=== PATIENT | male | born 1970 | race Caucasian/White ===

== ENCOUNTER → 2017-05-28 | Outpatient (CLI) | payer BC ==
[2017-05-28 14:18] LABS: FREE T4 1.16 NG/DL (0.76-1.46)
[2017-05-30 00:06] LABS: Lyme Disease IgG/IgM Antibodie <0.91 ISR (0.00-0.90); Lyme Disease IgM Ab Quantitati <0.80 index (0.00-0.79)
[2017-06-04 00:06] LABS: STREP PNEUMO TYPE 12F <0.3 ug/mL (>1.3); STREP PNEUMO TYPE 18C 1.5 ug/mL (>1.3); STREP PNEUMO TYPE 19A 7.5 ug/mL (>1.3); STREP PNEUMO TYPE 19F 13.1 ug/mL (>1.3); STREP PNEUMO TYPE 23F <0.3 ug/mL (>1.3); STREP PNEUMO TYPE 7F 6.7 ug/mL (>1.3); STREP PNEUMO TYPE 9N <0.3 ug/mL (>1.3); STREP PNEUMO TYPE 9V 0.3 ug/mL (>1.3)
== END ==
LOC: M SMT 08:41
PROVIDERS: ATTEND Physician Assistant
DX: B34.9 Viral infection, unspecified (principal); R53.83 Other fatigue

== ENCOUNTER → 2017-11-26 | Outpatient (CLI) | payer BC ==
[2017-11-26 16:21] LABS: ALBUMIN/GLOBULIN RATIO 1.38 (1.00-1.93); ALKALINE PHOSPHATASE 80 U/L (45-117); ALT/SGPT 42 U/L (12-78); ANION GAP 8 MEQ/L (8-16); AST/SGOT 21 U/L (7-37); BILIRUBIN,TOTAL 0.4 MG/DL (0.2-1.0); BLOOD UREA NITROGEN 15 MG/DL (7-18); CALCIUM LEVEL 8.3 MG/DL (8.5-10.1); CARBON DIOXIDE LEVEL 27 MEQ/L (21-32); CHLORIDE LEVEL 108 MEQ/L (98-107); CHOLESTEROL LEVEL 218 MG/DL (<200); CREATININE FOR GFR 0.94 MG/DL (0.70-1.30); GLOMERULAR FILTRATION RATE > 60.0 (>60); GLUCOSE, FASTING 100 MG/DL (70-100); HDL CHOLESTEROL 42 MG/DL (>40); LDL CHOLESTEROL 155.2 MG/DL (<100); NON-HDL-C 176 MG/DL; POTASSIUM SERUM 4.3 MEQ/L (3.5-5.1); SODIUM LEVEL 143 MEQ/L (136-145); TOTAL PROTEIN 6.9 GM/DL (6.4-8.2); TRIGLYCERIDES LEVEL 104 MG/DL (<150)
== END ==
LOC: M SMT 08:51
DX: I10 Essential (primary) hypertension (principal)
CPT/HCPCS: 80053

== ENCOUNTER → 2018-04-08 | Outpatient (CLI) | payer BC ==
[2018-04-10 09:05] LABS: Lyme Disease IgG/IgM Antibodie <0.91 ISR (0.00-0.90); Lyme Disease IgM Ab Quantitati <0.80 index (0.00-0.79)
== END ==
LOC: M SMT 08:38
DX: Z11.2 Encounter for screening for other bacterial diseases (principal); W57.XXXA Bitten or stung by nonvenomous insect and other nonvenomous arthropods, initial encounter
CPT/HCPCS: 36415

== ENCOUNTER → 2020-07-29 | Outpatient (CLI) | payer BC ==
[2020-07-29 09:25] LABS: BASO % 0.7 % (0.0-1.0); EOS # 0.1 10^3/uL (0.0-0.5); EOS % 1.1 % (0.0-3.0); HEMATOCRIT 49.2 % (42.0-52.0); HEMOGLOBIN 16.5 g/dl (13.5-17.5); LYMPH % 36.2 % (24.0-44.0); MEAN CORPUSCULAR HGB CONC 33.5 g/dl (32.0-36.5); MEAN CORPUSCULAR VOLUME 89.5 fl (80.0-96.0); MONO # 0.5 10^3/uL (0.0-0.8); MONO % 9.1 % (0.0-5.0); NEUTROPHILS # 2.9 10^3/uL (1.5-8.5); NEUTROPHILS % 52.7 % (36.0-66.0); PLATELET COUNT, AUTOMATED 205 10^3/uL (150-450); WHITE BLOOD COUNT 5.5 10^3/uL (4.0-10.0)
[2020-07-29 10:02] LABS: ALT/SGPT 49 U/L (12-78); BILIRUBIN,TOTAL 0.6 MG/DL (0.2-1.0); BLOOD UREA NITROGEN 13 MG/DL (7-18); CALCIUM LEVEL 8.4 MG/DL (8.5-10.1); CARBON DIOXIDE LEVEL 29 MEQ/L (21-32); CHLORIDE LEVEL 106 MEQ/L (98-107); CHOLESTEROL LEVEL 232 MG/DL (<200); CHOLESTEROL RISK RATIO 4.833 (<5); CREATININE FOR GFR 1.03 MG/DL (0.70-1.30); FREE T4 1.05 NG/DL (0.76-1.46); GLOMERULAR FILTRATION RATE > 60.0 (>56); GLUCOSE, FASTING 97 MG/DL (70-100); HDL CHOLESTEROL 48 MG/DL (>40); LDL CHOLESTEROL 172 MG/DL (<100); NON-HDL-C 184 MG/DL; POTASSIUM SERUM 4.4 MEQ/L (3.5-5.1); SODIUM LEVEL 140 MEQ/L (136-145); TRIGLYCERIDES LEVEL 61 MG/DL (<150)
[2020-07-29 10:28] LABS: HEMOGLOBIN A1c 5.6 %
[2020-07-29 10:58] LABS: TOTAL 25(OH) VITAMIN D 30.5 NG/ML (30.0-100.0)
== END ==
LOC: M LAB 08:52
PROVIDERS: ATTEND Physician Assistant
DX: E78.00 Pure hypercholesterolemia, unspecified (principal); Z13.29 Encounter for screening for other suspected endocrine disorder

== ENCOUNTER → 2021-05-08 | Outpatient (CLI) | payer BC ==
[2021-05-08 09:42] LABS: BASO # 0.1 10^3/uL (0.0-0.2); BASO % 0.7 % (0.0-1.0); EOS # 0.1 10^3/uL (0.0-0.5); EOS % 2.1 % (0.0-3.0); HEMATOCRIT 49.7 % (42.0-52.0); LYMPH # 2.2 10^3/uL (1.5-5.0); LYMPH % 31.8 % (24.0-44.0); MEAN CORPUSCULAR HEMOGLOBIN 30.4 pg (27.0-33.0); MEAN CORPUSCULAR HGB CONC 34.2 g/dl (32.0-36.5); MEAN CORPUSCULAR VOLUME 88.9 fl (80.0-96.0); MONO # 0.5 10^3/uL (0.0-0.8); MONO % 7.4 % (2.0-8.0); NEUTROPHILS # 3.9 10^3/uL (1.5-8.5); NEUTROPHILS % 57.6 % (36.0-66.0); PLATELET COUNT, AUTOMATED 194 10^3/uL (150-450); RED BLOOD COUNT 5.59 10^6/uL (4.30-6.10); WHITE BLOOD COUNT 6.8 10^3/uL (4.0-10.0)
[2021-05-08 10:03] LABS: ALT/SGPT 67 U/L (12-78); BILIRUBIN,TOTAL 0.6 MG/DL (0.2-1.0); BLOOD UREA NITROGEN 15 MG/DL (7-18); CALCIUM LEVEL 8.8 MG/DL (8.5-10.1); CARBON DIOXIDE LEVEL 31 MEQ/L (21-32); CHLORIDE LEVEL 103 MEQ/L (98-107); CHOLESTEROL LEVEL 237 MG/DL (<200); CHOLESTEROL RISK RATIO 5.042 (<5); GLOMERULAR FILTRATION RATE > 60.0 (>56); GLUCOSE, FASTING 101 MG/DL (70-100); HDL CHOLESTEROL 47 MG/DL (>40); LDL CHOLESTEROL 158 MG/DL (<100); NON-HDL-C 190 MG/DL; POTASSIUM SERUM 4.3 MEQ/L (3.5-5.1); SODIUM LEVEL 138 MEQ/L (136-145); TOTAL PROTEIN 7.1 GM/DL (6.4-8.2); TRIGLYCERIDES LEVEL 162 MG/DL (<150)
[2021-05-08 10:39] LABS: TOTAL 25(OH) VITAMIN D 37.8 NG/ML (30.0-100.0)
== END ==
LOC: M LAB 08:59
PROVIDERS: ATTEND Physician Assistant
DX: N40.1 Benign prostatic hyperplasia with lower urinary tract symptoms (principal); E78.00 Pure hypercholesterolemia, unspecified

== ENCOUNTER → 2021-10-02 | Outpatient (REF) | payer BC | LOC: M LAB REF 15:50 | PROVIDERS: ATTEND Physician Assistant | DX: J06.9 Acute upper respiratory infection, unspecified (principal) ==

== ENCOUNTER → 2023-01-11 | Outpatient (CLI) | payer BC ==
[2023-01-11 08:54] LABS: ALBUMIN 3.8 G/DL (3.2-5.2); ALKALINE PHOSPHATASE 87 U/L (46-116); ALT/SGPT 39 U/L (7.0-40); AST/SGOT 31 U/L (<34); BILIRUBIN,TOTAL 0.4 MG/DL (0.3-1.2); BLOOD UREA NITROGEN 13 MG/DL (9-23); CALCIUM LEVEL 8.8 MG/DL (8.5-10.1); CARBON DIOXIDE LEVEL 30 MMOL/L (20-31); CHLORIDE LEVEL 107 MMOL/L (98-107); CHOLESTEROL LEVEL 225 MG/DL (<200); CREATININE FOR GFR 0.97 MG/DL (0.70-1.30); GLOMERULAR FILTRATION RATE > 60.0 (>56); GLUCOSE, FASTING 100 MG/DL (60-100); HDL CHOLESTEROL 45.9 MG/DL (>40); LDL CHOLESTEROL 156.7 MG/DL (<100); NON-HDL-C 179.1 MG/DL; POTASSIUM SERUM 4.3 MMOL/L (3.5-5.1); SODIUM LEVEL 142 MMOL/L (136-145); TOTAL PROTEIN 6.5 G/DL (5.7-8.2); TRIGLYCERIDES LEVEL 112 MG/DL (<150)
[2023-01-11 08:59] LABS: FREE T4 1.09 NG/DL (0.89-1.76)
[2023-01-11 09:00] LABS: THYROID STIMULATING HORMONE 1.544 uIU/ML (0.55-4.78)
[2023-01-11 12:03] LABS: HEMOGLOBIN A1c 5.8 % (4.0-6.0)
[2023-01-12 23:07] LABS: PSA TOTAL 2.3 ng/mL (0.0-4.0)
== END ==
LOC: M LAB 07:46
PROVIDERS: ATTEND Family Medicine
DX: I10 Essential (primary) hypertension (principal); E55.9 Vitamin D deficiency, unspecified; R73.01 Impaired fasting glucose; E78.00 Pure hypercholesterolemia, unspecified; Z13.29 Encounter for screening for other suspected endocrine disorder; N40.1 Benign prostatic hyperplasia with lower urinary tract symptoms

== ENCOUNTER → 2023-07-28 | Outpatient (CLI) | payer BC ==
[2023-07-28 10:33] LABS: BASO % 0.7 % (0.0-1.0); EOS # 0.1 10^3/uL (0.0-0.5); EOS % 1.6 % (0.0-3.0); HEMATOCRIT 50.8 % (42.0-52.0); HEMOGLOBIN 17.2 g/dl (13.5-17.5); LYMPH # 2.1 10^3/uL (1.5-5.0); LYMPH % 36.5 % (24.0-44.0); MEAN CORPUSCULAR HEMOGLOBIN 30.1 pg (27.0-33.0); MEAN CORPUSCULAR HGB CONC 33.9 g/dl (32.0-36.5); MONO # 0.5 10^3/uL (0.0-0.8); MONO % 8.2 % (2.0-8.0); NEUTROPHILS % 52.7 % (36.0-66.0); PLATELET COUNT, AUTOMATED 208 10^3/uL (150-450); RED BLOOD COUNT 5.71 10^6/uL (4.30-6.10); WHITE BLOOD COUNT 5.8 10^3/uL (4.0-10.0)
[2023-07-28 10:55] LABS: HEMOGLOBIN A1c 5.5 % (4.0-6.0)
[2023-07-28 11:04] LABS: ALKALINE PHOSPHATASE 87 U/L (46-116); ALT/SGPT 55 U/L (7.0-40); AST/SGOT 35 U/L (<34); BILIRUBIN,TOTAL 0.9 MG/DL (0.3-1.2); BLOOD UREA NITROGEN 18 MG/DL (9-23); CALCIUM LEVEL 9.2 MG/DL (8.5-10.1); CARBON DIOXIDE LEVEL 29 MMOL/L (20-31); CHLORIDE LEVEL 105 MMOL/L (98-107); CHOLESTEROL LEVEL 272 MG/DL (<200); CHOLESTEROL RISK RATIO 5.88 (<5); CREATININE FOR GFR 0.91 MG/DL (0.70-1.30); GLOMERULAR FILTRATION RATE > 60.0 (>56); GLUCOSE, FASTING 109 MG/DL (60-100); HDL CHOLESTEROL 46.2 MG/DL (>40); LDL CHOLESTEROL 208.8 MG/DL (<100); NON-HDL-C 225.8 MG/DL; POTASSIUM SERUM 4.7 MMOL/L (3.5-5.1); SODIUM LEVEL 139 MMOL/L (136-145); TOTAL PROTEIN 7.2 G/DL (5.7-8.2); TRIGLYCERIDES LEVEL 85 MG/DL (<150)
[2023-07-28 11:06] LABS: TOTAL 25(OH) VITAMIN D 28.3 NG/ML (20.0-100.0)
== END ==
LOC: M LAB 09:51
PROVIDERS: ATTEND Physician Assistant
DX: R73.01 Impaired fasting glucose (principal); E55.9 Vitamin D deficiency, unspecified; E78.00 Pure hypercholesterolemia, unspecified

== ENCOUNTER → 2023-08-16 | Outpatient (CLI) | payer BC | LOC: M SLEEP HO 11:31 | PROVIDERS: ATTEND Family Medicine | DX: G47.10 Hypersomnia, unspecified (principal) ==

== ENCOUNTER → 2023-10-06 | Outpatient (CLI) | payer BC ==
[~2023-10-06] MED LIST: BRIN1TAB PO; ERGO500029 PO; LISI10TA22 PO; ROSU10TA6 PO; TADA10TA PO; TAMS1CAP17 PO
[2023-10-06 09:39] LABS: BILIRUBIN,DIRECT 0.2 MG/DL (<0.4); BILIRUBIN,TOTAL 0.5 MG/DL (0.3-1.2); CHOLESTEROL RISK RATIO 4.76 (<5); HDL CHOLESTEROL 41.8 MG/DL (>40); LDL CHOLESTEROL 132.4 MG/DL (<100); NON-HDL-C 157.2 MG/DL; TOTAL PROTEIN 6.8 G/DL (5.7-8.2)
== END ==
LOC: M LAB 08:30
PROVIDERS: ATTEND Family Medicine
DX: E78.00 Pure hypercholesterolemia, unspecified (principal)

== ENCOUNTER 2023-12-17 10:33 | Day surgery (SDC) | payer BC ==
[~2023-12-17] VITALS: Ht 175.3 cm; Wt 89.4 kg
[~2023-12-17 10:33] MED LIST changes: +NS 1,000 ML IV ONE
[2023-12-17] MEDS ORDERED: propofoL 200 MG/20 ML VIAL As Ordered ONE (10:58)
[2023-12-17] MEDS ORDERED: LIDOCAINE 2% 100MG/5ML SDV (FOR ANES.) As Ordered ONE (10:58)
[2023-12-17 11:32] VITALS: TEMP 96.8
[2023-12-17 11:43] VITALS: BP 154/86; O2SAT 97
== END 2023-12-17 11:55 | disposition home or self-care (01) ==
LOC: M OPP 10:33
PROVIDERS: ATTEND Surgery
DX: Z12.11 Encounter for screening for malignant neoplasm of colon (principal); Z86.010 Personal history of colon polyps; K64.1 Second degree hemorrhoids; K57.30 Diverticulosis of large intestine without perforation or abscess without bleeding; G47.30 Sleep apnea, unspecified; Z79.02 Long term (current) use of antithrombotics/antiplatelets; Z79.899 Other long term (current) drug therapy

== ENCOUNTER → 2024-02-02 | Outpatient (REF) | payer BC ==
[~2024-02-02] MED LIST changes: -NS 1,000 ML IV ONE; -ROSU10TA6 PO; +ROSU10TA61 PO
== END ==
LOC: M LABSMT 10:47
PROVIDERS: ATTEND Urology
DX: Z12.5 Encounter for screening for malignant neoplasm of prostate (principal); Z53.9 Procedure and treatment not carried out, unspecified reason

== ENCOUNTER 2024-04-06 10:46 | Inpatient (IN) | payer BC ==
[~2024-04-06] VITALS: Ht 175.3 cm; Wt 90.9 kg
[2024-04-06] VITALS (7 sets, daily range): BP systolic 127–152; BP diastolic 69–90; TEMP 97.6–98.2; O2SAT 91–99
[2024-04-06] MEDS: DOCUSATE SODIUM 100MG CAPSULE PO SCH (09:00)
[2024-04-06] MEDS: UNRESOLVED PATIENT OWN MED ORDER XX SCH (09:00)
[2024-04-06] MEDS: NS 1,000 ML IV SCH (12:34)
[2024-04-06] MEDS: ONDANSETRON 4MG 2ML VIAL IV ONE (12:34)
[2024-04-06] MEDS: MORPHINE 4 MG/ML 1ML VIAL IV ONE (12:35)
[2024-04-06] MEDS: BACITRACIN OINTMENT 30GM TUBE TOP ONE (12:40)
[2024-04-06 12:54] LABS: BASO % 0.2 % (0.0-1.0); EOS % 0.1 % (0.0-3.0); HEMATOCRIT 48.5 % (42.0-52.0); HEMOGLOBIN 16.6 g/dl (13.5-17.5); LYMPH # 1.3 10^3/uL (1.5-5.0); LYMPH % 8.6 % (24.0-44.0); MEAN CORPUSCULAR HEMOGLOBIN 30.6 pg (27.0-33.0); MEAN CORPUSCULAR HGB CONC 34.2 g/dl (32.0-36.5); MEAN CORPUSCULAR VOLUME 89.5 fl (80.0-96.0); MONO # 0.7 10^3/uL (0.0-0.8); MONO % 4.8 % (2.0-8.0); NEUTROPHILS # 12.4 10^3/uL (1.5-8.5); NEUTROPHILS % 85.7 % (36.0-66.0); PLATELET COUNT, AUTOMATED 183 10^3/uL (150-450); RED BLOOD COUNT 5.42 10^6/uL (4.30-6.10); WHITE BLOOD COUNT 14.5 10^3/uL (4.0-10.0)
[2024-04-06 13:13] LABS: BLOOD UREA NITROGEN 14 MG/DL (9-23); CARBON DIOXIDE LEVEL 28 MMOL/L (20-31); CHLORIDE LEVEL 104 MMOL/L (98-107); CREATININE FOR GFR 0.87 MG/DL (0.70-1.30); GLOMERULAR FILTRATION RATE > 60.0 (>56); GLUCOSE, FASTING 104 MG/DL (60-100); POTASSIUM SERUM 4.1 MMOL/L (3.5-5.1); SODIUM LEVEL 139 MMOL/L (136-145)
[2024-04-06 13:15] LABS: INR 0.96; PARTIAL THROMBOPLASTIN TIME 25.2 SECONDS (24.8-34.2); PROTHROMBIN TIME 12.5 SECONDS (12.5-14.5)
[2024-04-06] MEDS ORDERED: ROSU20TA61 PO (14:09)
[2024-04-06] MEDS ORDERED: TADA10TA PO (14:09)
[2024-04-06] MEDS ORDERED: MAALOX 30 ML SUSP *UDC PO PRN (14:10)
[2024-04-06] MEDS ORDERED: ACETAMINOPHEN TAB 650MG DOSE (2X325MG) PO PRN (14:10)
[2024-04-06] MEDS ORDERED: HOME MED LIST COMPLETE! XX SCH (14:10)
[2024-04-06] MEDS ORDERED: MOM 30ML SUSPENSION UDC PO PRN (14:10)
[2024-04-06] MEDS ORDERED: MORPHINE 4 MG/ML 1ML VIAL IV PRN (15:25)
[2024-04-06] MEDS: MORPHINE 2 MG/ML 1ML VIAL IV PRN (16:06)
[2024-04-06] MEDS ORDERED: SUGAMMADEX SODIUM 500 MG/5 ML VIAL (BRIDION) As Ordered ONE (17:03)
[2024-04-06] MEDS ORDERED: ACETAMINOPHEN 1000MG 100ML IV BAG As Ordered ONE (17:03)
[2024-04-06] MEDS ORDERED: LIDOCAINE 2% JELLY 6ML SYRINGE As Ordered ONE (17:03)
[2024-04-06] MEDS ORDERED: fentaNYL 100 MCG/2 ML INJECTION As Ordered ONE (17:03)
[2024-04-06] MEDS ORDERED: HYDROmorphone HCL 2MG/ML 1ML VIAL As Ordered ONE (17:03)
[2024-04-06] MEDS ORDERED: propofoL 200 MG/20 ML VIAL As Ordered ONE (17:03)
[2024-04-06] MEDS ORDERED: ONDANSETRON 4MG 2ML VIAL As Ordered ONE (17:03)
[2024-04-06] MEDS ORDERED: ROCURONIUM BROMIDE 50MG/5ML VIAL As Ordered ONE (17:03)
[2024-04-06] MEDS: ceFAZolin 2 GM/D5W 50 ML IV BAG As Ordered ONE (18:04)
[2024-04-06] MEDS: TRANEXAMIC ACID 100 MG/ML 10ML VIAL As Ordered ONE (18:06)
[2024-04-06] MEDS ORDERED: PHENYLephrine 500MCG 5ML (100MCG/ML) SYRINGE As Ordered ONE (18:15)
[2024-04-06] MEDS ORDERED: KETOROLAC 60MG 2ML VIAL As Ordered ONE (18:24)
[2024-04-06] MEDS ORDERED: ePHEDrine SULFATE 25 MG/5 ML(5MG/ML) SYRINGE As Ordered ONE (18:32)
[2024-04-06] MEDS ORDERED: HYDROMORPHONE HCL 0.5 MG/ 0.5 ML SYRINGE IV PRN (20:10)
[2024-04-06] MEDS: LR 1,000 ML IV SCH (20:10)
[2024-04-06] MEDS ORDERED: ONDANSETRON 4MG 2ML VIAL IV PRN (20:10)
[2024-04-06] MEDS ORDERED: fentaNYL 100 MCG/2 ML INJECTION IV PRN (20:10)
[2024-04-06] MEDS ORDERED: oxyCODONE 5MG TAB PO PRN (20:10)
[2024-04-06] MEDS ORDERED: METOCLOPRAMIDE INJ 10MG/2ML VIAL IV PRN (20:10)
[2024-04-06] MEDS ORDERED: TRINTELLIX 5 MG PO SCH (21:00)
[2024-04-06] MEDS: ROSUVASTATIN 10 MG TAB (CRESTOR) PO SCH (22:02)
[2024-04-07 00:26] VITALS: BP 119/70; TEMP 97.2; O2SAT 94
[2024-04-07 01:26] VITALS: BP 114/65; TEMP 97.6; O2SAT 95
[2024-04-07 02:26] VITALS: BP 106/64; TEMP 97.6; O2SAT 93
[2024-04-07 03:27] VITALS: BP 106/65; TEMP 97.2; O2SAT 88
[2024-04-07 04:27] VITALS: BP 109/64; TEMP 97.8; O2SAT 88
[2024-04-07 07:01] LABS: BASO % 0.1 % (0.0-1.0); HEMATOCRIT 41.2 % (42.0-52.0); LYMPH # 0.9 10^3/uL (1.5-5.0); LYMPH % 9.5 % (24.0-44.0); MEAN CORPUSCULAR HEMOGLOBIN 30.9 pg (27.0-33.0); MEAN CORPUSCULAR VOLUME 88.4 fl (80.0-96.0); MONO # 0.6 10^3/uL (0.0-0.8); MONO % 6.4 % (2.0-8.0); NEUTROPHILS # 8.3 10^3/uL (1.5-8.5); NEUTROPHILS % 83.6 % (36.0-66.0); PLATELET COUNT, AUTOMATED 165 10^3/uL (150-450); RED BLOOD COUNT 4.66 10^6/uL (4.30-6.10); WHITE BLOOD COUNT 9.9 10^3/uL (4.0-10.0)
[2024-04-07 07:03] LABS: HEMOGLOBIN 14.4 g/dl (13.5-17.5)
[2024-04-07 07:23] LABS: ALBUMIN 3.3 G/DL (3.2-5.2); ALKALINE PHOSPHATASE 78 U/L (46-116); ALT/SGPT 38 U/L (7.0-40); AST/SGOT 27 U/L (<34); BILIRUBIN,TOTAL 0.6 MG/DL (0.3-1.2); BLOOD UREA NITROGEN 15 MG/DL (9-23); CARBON DIOXIDE LEVEL 28 MMOL/L (20-31); CHLORIDE LEVEL 105 MMOL/L (98-107); CREATININE FOR GFR 0.85 MG/DL (0.70-1.30); GLOMERULAR FILTRATION RATE > 60.0 (>56); GLUCOSE, FASTING 127 MG/DL (60-100); MAGNESIUM LEVEL 1.8 MG/DL (1.8-2.4); POTASSIUM SERUM 4.3 MMOL/L (3.5-5.1); SODIUM LEVEL 139 MMOL/L (136-145); TOTAL PROTEIN 5.7 G/DL (5.7-8.2)
[2024-04-07 07:59] VITALS: BP 113/65; TEMP 97.9; O2SAT 91
[2024-04-07] MEDS ORDERED: MORPHINE 4 MG/ML 1ML VIAL IV PRN (08:50)
[2024-04-07] MEDS ORDERED: PERCOCET 5MG/325MG TAB PO PRN ×2 (08:50)
[2024-04-07] MEDS ORDERED: NALOXONE INJ 0.4MG/1ML VIAL IV PRN (08:50)
[2024-04-07] MEDS: ceFAZolin SOD 2 GM in IV 1 EA IV SCH (10:04)
[2024-04-07] MEDS ORDERED: SENO8.6T10 PO (10:47)
[2024-04-07] MEDS ORDERED: PERCOCET PO (10:47)
[2024-04-07] MEDS ORDERED: ASPI81TA26 PO (10:50)
[2024-04-08] MEDS ORDERED: ENOXAPARIN 40MG/0.4ML SYRINGE (J1650 PER 10MG) SC SCH (09:00)
== END 2024-04-07 12:25 | disposition hospice, home (50) | DRG 313 ==
LOC: M ED 10:46 → M ED INP 14:08 → M MS5PR 15:20
PROVIDERS: ADMIT Student in an Organized Health Care Education/Training Program; ATTEND General Practice
PROC: 0QSH06Z Reposition Left Tibia with Intramedullary Internal Fixation Device, Open Approach (ICD-10-PCS; principal; 2024-04-06 17:00)
DX: S82.202A Unspecified fracture of shaft of left tibia, initial encounter for closed fracture (principal); I10 Essential (primary) hypertension; E78.5 Hyperlipidemia, unspecified; F41.9 Anxiety disorder, unspecified; S82.402A Unspecified fracture of shaft of left fibula, initial encounter for closed fracture; Z79.899 Other long term (current) drug therapy; Z79.82 Long term (current) use of aspirin; W23.1XXA Caught, crushed, jammed, or pinched between stationary objects, initial encounter

== ENCOUNTER → 2024-04-20 | Outpatient (CLI) | payer BC ==
[~2024-04-20] MED LIST changes: +ASPI81TA26 PO; +PERCOCET PO; +ROSU20TA61 PO; +SENO8.6T10 PO
== END ==
LOC: M SOG 08:19
PROVIDERS: ATTEND Physician Assistant
DX: S82.202D Unspecified fracture of shaft of left tibia, subsequent encounter for closed fracture with routine healing (principal)

== ENCOUNTER → 2024-04-26 | Outpatient (RCR) | payer BC | LOC: M PT 04-21 08:02 | PROVIDERS: ATTEND Orthopaedic Surgery | DX: S82.202A Unspecified fracture of shaft of left tibia, initial encounter for closed fracture (principal) ==

== ENCOUNTER 2024-05-10 08:30 | Outpatient (RCR) | payer BC | END 2024-05-27 | LOC: M PT 08:30 | PROVIDERS: ATTEND Orthopaedic Surgery | DX: S82.202D Unspecified fracture of shaft of left tibia, subsequent encounter for closed fracture with routine healing (principal); X58.XXXD Exposure to other specified factors, subsequent encounter ==

== ENCOUNTER → 2024-06-26 | Outpatient (RCR) | payer BC ==
[~2024-06-26] MED LIST changes: +MIDAZOLAM INJ 2MG/2ML VIAL As Ordered ONE; -ROSU20TA61 PO; +ROSU20TA86 PO
== END ==
LOC: M PT 07:53
PROVIDERS: ATTEND Physician Assistant
DX: S82.202D Unspecified fracture of shaft of left tibia, subsequent encounter for closed fracture with routine healing (principal)

== ENCOUNTER → 2024-06-29 | Outpatient (CLI) | payer BC ==
[~2024-06-29] MED LIST changes: -MIDAZOLAM INJ 2MG/2ML VIAL As Ordered ONE
== END ==
LOC: M SOG 07:18
PROVIDERS: ATTEND Physician Assistant
DX: S82.202D Unspecified fracture of shaft of left tibia, subsequent encounter for closed fracture with routine healing (principal)

== ENCOUNTER 2024-07-12 08:27 | Outpatient (RCR) | payer BC | END 2024-07-27 | LOC: M PT 08:27 | PROVIDERS: ATTEND Physician Assistant | DX: S82.202D Unspecified fracture of shaft of left tibia, subsequent encounter for closed fracture with routine healing (principal) ==

== ENCOUNTER → 2024-08-21 | Outpatient (CLI) | payer BC ==
[2024-08-21 09:03] LABS: BASO % 0.7 % (0.0-1.0); EOS # 0.1 10^3/uL (0.0-0.5); EOS % 1.8 % (0.0-3.0); HEMATOCRIT 48.8 % (42.0-52.0); HEMOGLOBIN 16.7 g/dl (13.5-17.5); LYMPH # 1.9 10^3/uL (1.5-5.0); LYMPH % 30.2 % (24.0-44.0); MEAN CORPUSCULAR HEMOGLOBIN 29.7 pg (27.0-33.0); MEAN CORPUSCULAR HGB CONC 34.2 g/dl (32.0-36.5); MEAN CORPUSCULAR VOLUME 86.7 fl (80.0-96.0); MONO # 0.4 10^3/uL (0.0-0.8); NEUTROPHILS # 3.7 10^3/uL (1.5-8.5); PLATELET COUNT, AUTOMATED 189 10^3/uL (150-450); RED BLOOD COUNT 5.63 10^6/uL (4.30-6.10); WHITE BLOOD COUNT 6.2 10^3/uL (4.0-10.0)
[2024-08-21 09:28] LABS: ALBUMIN 3.8 G/DL (3.2-5.2); ALKALINE PHOSPHATASE 128 U/L (40-129); ALT/SGPT 36 U/L (7.0-40); AST/SGOT 16 U/L (<34); BILIRUBIN,TOTAL 0.5 MG/DL (0.3-1.2); BLOOD UREA NITROGEN 15 MG/DL (9-23); CALCIUM LEVEL 8.8 MG/DL (8.5-10.1); CARBON DIOXIDE LEVEL 27 MMOL/L (20-31); CHLORIDE LEVEL 105 MMOL/L (98-107); CHOLESTEROL LEVEL 174 MG/DL (<200); CHOLESTEROL RISK RATIO 3.74 (<5); CREATININE FOR GFR 0.93 MG/DL (0.70-1.30); GLOMERULAR FILTRATION RATE > 60.0 (>56); GLUCOSE, FASTING 114 MG/DL (60-100); HDL CHOLESTEROL 46.5 MG/DL (>40); LDL CHOLESTEROL 114.3 MG/DL (<100); NON-HDL-C 127.5 MG/DL; POTASSIUM SERUM 4.2 MMOL/L (3.5-5.1); SODIUM LEVEL 138 MMOL/L (136-145); TOTAL PROTEIN 6.9 G/DL (5.7-8.2); TRIGLYCERIDES LEVEL 66 MG/DL (<150)
[2024-08-21 09:31] LABS: THYROID STIMULATING HORMONE 2.193 uIU/ML (0.55-4.78); TOTAL 25(OH) VITAMIN D 30.4 NG/ML (20.0-100.0)
[2024-08-21 09:32] LABS: FREE T4 1.05 NG/DL (0.89-1.76)
== END ==
LOC: M LAB 08:10
PROVIDERS: ATTEND Family Medicine
DX: I10 Essential (primary) hypertension (principal); E55.9 Vitamin D deficiency, unspecified; E78.00 Pure hypercholesterolemia, unspecified; R73.01 Impaired fasting glucose

== ENCOUNTER → 2024-09-14 | Outpatient (CLI) | payer BC | LOC: M SOG 07:50 | PROVIDERS: ATTEND Physician Assistant | DX: S82.202A Unspecified fracture of shaft of left tibia, initial encounter for closed fracture (principal); Y93.9 Activity, unspecified; Y92.9 Unspecified place or not applicable ==